=== PATIENT | male | born 1990 | race American Indian/Alaskan Native ===

== ENCOUNTER 2017-02-26 16:26 | Emergency (ER) | payer MEDICAID, OTHER ==
[2017-02-26 17:10] LABS: Basophils % (Auto) 0.8 % (0.0-1.8); Eosinophils % (Auto) 0.3 % (0.0-4.3); Hematocrit 42.9 % (35.5-45.6); Hemoglobin 14.6 gm/dl (11.8-15.2); Mean Corpuscular HGB Conc 34 % (32-34); Mean Corpuscular Hemoglobin 31 pg (28-32); Mean Corpuscular Volume 90 fl (84-94); Platelet Count 244 K/mm3 (140-440); Red Blood Count 4.77 M/mm3 (3.65-5.03); Red Cell Distribution Width 13.8 % (13.2-15.2); White Blood Count 8.5 K/mm3 (4.5-11.0)
[2017-02-26 17:31] LABS: Anion Gap 20 mmol/L; BUN/Creatinine Ratio 11; Blood Urea Nitrogen 8 mg/dL (9-20); Calcium 9.4 mg/dL (8.4-10.2); Carbon Dioxide 23 mmol/L (22-30); Glucose 81 mg/dL (75-100); Potassium 3.5 mmol/L (3.6-5.0); Sodium 141 mmol/L (137-145)
[2017-02-26 18:10] LABS: Urine Drugs of Abuse Note Disclamer
[2017-02-26 18:15] LABS: Alanine Aminotransferase 14 units/L (7-56); Albumin 4.8 g/dL (3.9-5); Albumin/Globulin Ratio 1.8 %; Alkaline Phosphatase 58 units/L (35-129); Total Protein 7.4 g/dL (6.3-8.2)
[2017-02-26 18:17] LABS: Bilirubin,Direct < 0.2 mg/dL (0-0.2); Bilirubin,Indirect 0.7 mg/dL
[2017-02-26 18:20] LABS: Bilirubin,Urine NEG (Negative); Blood,Urine NEG (Negative); Ketones,Urine TR mg/dL (Negative); Leukocyte Esterase,Urine NEG (Negative); Mucus,Urine 3+ /HPF; Nitrite,Urine NEG (Negative); Urobilinogen,Urine < 2.0 mg/dL (<2.0)
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
[2017-02-26 19:03] LABS: Lithium 0.1 mmol/L (0.0-1.2)
[2017-02-26 19:12] LABS: Salicylate < 0.3 mg/dL (2.8-20.0); Valproate < 2.8 ug/mL (50-100)
[2017-02-26] MEDS ORDERED: BENADRYL IM PRN (19:37)
[2017-02-26] MEDS: LITHOBID ER PO SCH (23:02)
[2017-02-27] MEDS: NON-FORMULARY (Paliperidone [Invega] 6 MG) PO SCH (11:36)
--- NOTE | 2017-02-27 14:32 | Consultation ---
History of Present Illness - Reason for Consult Consult date: 02/27/17 Reason for consult: Mental Health Evaluation Requesting physician: ALEX FELIZ - Chief Complaint Chief complaint: "My mom is no body" - History of Present Psychiatric Illness The patient is a 26-year-old AA male presenting with a chief complaint of violent behavior. Today patient is uncooperative and agitated during the assessment. He stated that his mother isn't anyone. He stated multiple times that his name is "Inderjit" and only the "word" can help everyone. He would not elaborate why he said the "word" can help everyone. The patient is hyper confucianist during the interview. He stated that his mother is the cause of his future "demise." He used curse words to describe his mother. He had to be told multiple time to stop cursing during the interview. When the patient was asked questions, he was evasive with his answers. He stated that he "maybe" suicidal, but would not confirm or deny a plan. Throughout the interview he spoke negative about his mother. He denies HI's and AVH's. He stated that he took Invega, Depakote, and [place] in the past. Medications and Allergies Allergies Allergy/AdvReac Type Severity Reaction Status Date / Time No Known Allergies Allergy Unverified 05/03/15 08:55 Home Medications Medication Instructions Recorded Confirmed Last Taken Type Divalproex Sodium [Divalproex 500 mg PO QHS 02/26/17 02/26/17 Unknown History Sodium ER] [place] Carbonate [[place] 450 mg PO QHS 02/26/17 02/26/17 Unknown History Carbonate ER] Paliperidone [Invega] 6 mg PO QDAY 02/26/17 02/26/17 Unknown History Active Meds: Active Medications Diphenhydramine HCl (Benadryl) 50 mg IM Q6H PRN PRN Reason: Agitation Divalproex Sodium (Depakote Er) 500 mg PO QHS [facility] Last Admin: 02/26/17 23:02 Dose: 500 mg [place] Carbonate (Lithobid Er) 450 mg PO QHS [facility] Last Admin: 02/26/17 23:02 Dose: 450 mg Miscellaneous Medication (Paliperidone [Invega]) 6 mg PO QDAY [facility] Last Admin: 02/27/17 11:36 Dose: Not Given Past psychiatric history - Past Medical History Past Medical History: No medical history Past Surgical History: No surgical history - past Psychiatric treatment and history Psych: Bipolar, Schizophrenia psychiatric treatment history: Would not confirm or deny having a mental health dx. Unable to obtain a fam psy hx. - Social History Social history: lives with family Mental Status Exam - Vital signs Last Vital Signs Temp 98.5 F 02/27/17 10:46 Pulse 68 02/27/17 10:46 Resp 16 02/27/17 10:46 BP 103/48 02/27/17 10:46 Pulse Ox 97 02/27/17 10:46 - Exam Narrative exam: MSE: Appearance: uncooperative Behavior: regular eye contact Speech: regular rate and tone Mood: agitated Affect: congruent to mood Thought Process: tangential Thought Content: denies HI's and AVH's, grandiose, deluisonal Motor Activity: sitting up in bed Cognition: A/Ox3 Insight: poor Judgment: poor Results Result Diagrams: 02/26/17 16:56 02/26/17 16:56 Abnormal lab results 02/26/17 02/26/17 02/26/17 Range/Units 16:56 16:56 16:56 [place] % (Auto) 8.9 H (0.0-7.3) % Potassium 3.5 L (3.6-5.0) mmol/L BUN 8 L (9-20) mg/dL Creatinine 0.7 L (0.8-1.5) mg/dL Salicylates < 0.3 L (2.8-20.0) mg/dL Valproic Acid < 2.8 L (50-100) ug/mL All other labs normal. Assessment and Plan Assessment and plan: Impression: Unspecified Mood DO with psychotic features. Today patient is uncooperative and agitated during the assessment. Positive for marijuana. DDx: Bipolar DO, R/O Schizophrenia, R/O Substance Induced Mood DO Recommendation/Plan: Continue 1013 with placement to inpatient psy services. Continue [place] 450 mg PO HS for mood, Depakote 500 mg PO HS for mood, and start Risperdal 0.5 mg PO HS for mood/psychotic symptoms. Discussed possible metabolic side effects of Risperdal with patient. If patient is still in the ER for 5 days, [place] and Depakote levels will be ordered.
[2017-02-27] MEDS ORDERED: RisperDAL PO SCH (22:00)
[2017-02-27] MEDS: RisperDAL PO SCH (22:18)
[2017-02-27] MEDS: LITHOBID ER PO SCH (22:19)
[2017-02-28] MEDS: NON-FORMULARY (Paliperidone [Invega] 6 MG) PO SCH (09:38)
--- NOTE | 2017-02-28 13:57 | Progress Note ---
Subjective - Reason for Consult Consult date: 02/28/17 Reason for consult: Psychiatry Follow-up - Chief Complaint Chief complaint: 'I am chilling" The patient is a 26-year-old AA male presenting with a chief complaint of violent behavior. Today the patient is cooperative during the assessment. He continue to be grandiose during the interview. He stated that he "must" get his mother to understand her role. He would not elaborate more when asked. The patient had to be redirected several time to keep him on topic. He denies SI/HI' s. Mental Status Exam - Vital signs Last Vital Signs Temp 97.9 F 02/28/17 09:26 Pulse 73 02/28/17 09:26 Resp 18 02/28/17 09:26 BP 112/63 02/28/17 09:26 Pulse Ox 99 02/28/17 09:26 - Exam Narrative exam: MSE: Appearance: cooperative Behavior: regular eye contact Speech: regular rate and tone Mood: "okay" Affect: flat Thought Process: tangential Thought Content: denies HI's and AVH's, grandiose, delusional Motor Activity: sitting up in bed Cognition: A/Ox3 Insight: poor Judgment: poor Assessment and Plan Impression: Unspecified Mood DO with psychotic features. Today patient is cooperative during the assessment. Positive for marijuana. DDx: Bipolar DO, R/O Schizophrenia, R/O Substance Induced Mood DO Recommendation/Plan: Continue 1013 with placement to inpatient psy services. Continue [place] 450 mg PO HS for mood, Depakote 500 mg PO HS for mood, and start Risperdal 0.5 mg PO HS for mood/psychotic symptoms. Discussed possible metabolic side effects of Risperdal with patient. If patient is still in the ER for 5 days, [place] and Depakote levels will be ordered.
[2017-02-28] MEDS: RisperDAL PO SCH (23:06)
[2017-02-28] MEDS: LITHOBID ER PO SCH (23:10)
[2017-03-01] MEDS ORDERED: GEODON PO ONE (09:31)
[2017-03-01] MEDS: NON-FORMULARY (Paliperidone [Invega] 6 MG) PO SCH (09:41)
--- NOTE | 2017-03-01 17:36 | Progress Note ---
Subjective - Reason for Consult Consult date: 03/01/17 Reason for consult: follow up - Chief Complaint Chief complaint: "I'm the same." The patient is a 26-year-old AA male presenting with a chief complaint of violent behavior. Today the patient was minimally cooperative during the assessment but not aggressive. He would not elaborate more when asked. He denies SI/HI's. Mental Status Exam - Vital signs Last Vital Signs Temp 98.2 F 03/01/17 07:25 Pulse 48 L 03/01/17 07:25 Resp 18 03/01/17 07:25 BP 109/47 03/01/17 07:25 Pulse Ox 99 03/01/17 07:25 - Exam Narrative exam: MSE: Appearance: cooperative Behavior: avoidant eye contact Speech: regular rate and tone Mood: irritable Affect: flat Thought Process: tangential Thought Content: denies HI's and AVH's, grandiose, delusional Motor Activity: sitting up in bed Cognition: A/Ox3 Insight: poor Judgment: poor Assessment and Plan Impression: Unspecified Mood DO with psychotic features. Today patient is minimally cooperative during the assessment. Positive for marijuana. DDx: Bipolar DO, R/O Schizophrenia, R/O Substance Induced Mood DO Recommendation/Plan: Continue 1013 with placement to inpatient psy services. Continue [place] 450 mg PO HS for mood, Depakote 500 mg PO HS for mood, and start Risperdal 0.5 mg PO HS for mood/psychotic symptoms. Discussed possible metabolic side effects of Risperdal with patient. If patient is still in the ER for 5 days, [place] and Depakote levels will be ordered.
[2017-03-01] MEDS: LITHOBID ER PO SCH (22:20)
[2017-03-01] MEDS: RisperDAL PO SCH (22:20)
[2017-03-02] MEDS: NON-FORMULARY (Paliperidone [Invega] 6 MG) PO SCH (11:00)
--- NOTE | 2017-03-02 18:14 | Progress Note ---
Subjective - Reason for Consult Consult date: 03/02/17 Reason for consult: follow up - Chief Complaint Chief complaint: "I need to get to work." The patient is a 26-year-old AA male presenting with a chief complaint of violent behavior. He has not displayed any aggressive behavior. He appeared as though he was tearful today. He states "a lot is going on." He wants to get back to work at [employer]. He has been resting on the stretcher for most of the day. He denies SI/HI's. He denies hallucinations. He denies medication side effects. Mental Status Exam - Vital signs Last Vital Signs Temp 97.8 F 03/02/17 08:15 Pulse 58 L 03/02/17 08:15 Resp 16 03/02/17 08:15 BP 102/58 03/02/17 08:15 Pulse Ox 100 03/02/17 08:15 - Exam Narrative exam: MSE: Appearance: cooperative Behavior: fair eye contact Speech: regular rate and tone Mood: depressed Affect: flat Thought Process: limited in scope Thought Content: denies HI's and AVH's, would not discuss Motor Activity: sitting up in bed Cognition: A/Ox3 Insight: poor Judgment: poor Assessment and Plan Impression: Unspecified Mood DO with psychotic features. Today patient is minimally cooperative during the assessment. Positive for marijuana. DDx: Bipolar DO, R/O Schizophrenia, R/O Substance Induced Mood DO Recommendation/Plan: Continue 1013 with placement to inpatient psy services. Continue [place] 450 mg PO HS for mood, Depakote 500 mg PO HS for mood, and increase Risperdal to 1 mg PO HS for mood/psychotic symptoms. Discussed possible metabolic side effects of Risperdal with patient. If patient is still in the He has been receiving [place] and Depakote x 5 days and levels will be ordered for tomorrow am.
[2017-03-02] MEDS: LITHOBID ER PO SCH (22:29)
[2017-03-02] MEDS: RisperDAL PO SCH (22:29)
[2017-03-03 06:34] LABS: Lithium 0.6 mmol/L (0.0-1.2); Valproate 40.8 ug/mL (50-100)
[2017-03-03] MEDS: NON-FORMULARY (Paliperidone [Invega] 6 MG) PO SCH (12:01)
--- NOTE | 2017-03-03 14:36 | Progress Note ---
Subjective - Reason for Consult Consult date: 03/03/17 Reason for consult: Psychiatry Follow-up - Chief Complaint Chief complaint: "When can I leave" The patient is a 26-year-old AA male presenting with a chief complaint of violent behavior. Today patient is calm and cooperative during the assessment. The patient is more cooperative today than previous interviews. He stated that he would like to be discharged so he can return to work. He denies SI/HI's and AVH's. He denies any side effects of his medications. Mental Status Exam - Vital signs Last Vital Signs Temp 98.3 F 03/03/17 09:38 Pulse 72 03/03/17 09:38 Resp 20 03/03/17 09:38 BP 107/51 03/03/17 09:38 Pulse Ox 96 03/03/17 09:38 - Exam Narrative exam: MSE: Appearance: calm, cooperative Behavior: regular eye contact Speech: regular rate and tone Mood: "okay" Affect: congruent to mood Thought Process: circumstantial Thought Content: denies HI's and AVH's Motor Activity: sitting up in bed Cognition: A/Ox3 Insight: variable Judgment: variable Assessment and Plan Impression: Unspecified Mood DO with psychotic features. Today patient is calm and cooperative during the assessment. Positive for marijuana. [place] 40.8 and [place] 0.6. DDx: Bipolar DO, R/O Schizophrenia, R/O Substance Induced Mood DO Recommendation/Plan: Continue 1013 with placement to inpatient psy services. Continue [place] 450 mg PO HS for mood, Depakote 500 mg PO HS for mood, and Risperdal 1 mg PO HS for mood/psychotic symptoms. Discussed possible metabolic side effects of Risperdal with patient.
[2017-03-03] MEDS: LITHOBID ER PO SCH (21:47)
[2017-03-03] MEDS: RisperDAL PO SCH (21:48)
[2017-03-04 01:51] VITALS: BP 105/63
== END 2017-03-04 00:05 ==
LOC: EEVIPCON 16:26 → ED 16:26
DX: F20.9 Schizophrenia, unspecified (principal); F91.9 Conduct disorder, unspecified; R45.851 Suicidal ideations; F17.200 Nicotine dependence, unspecified, uncomplicated; F12.10 Cannabis abuse, uncomplicated
CPT/HCPCS: 36415; 80048; 80074; 80164; 80178; 80307; 81001; 85025; 99285; G0480; 80320

== ENCOUNTER 2017-03-26 10:14 | Emergency (ER) | payer MEDICAID ==
[2017-03-26 11:58] LABS: Basophils # (Auto) 0.1 K/mm3 (0.0-0.1); Eosinophils # (Auto) 0.1 K/mm3 (0.0-0.4); Eosinophils % (Auto) 0.8 % (0.0-4.3); Hematocrit 43.5 % (35.5-45.6); Hemoglobin 14.8 gm/dl (11.8-15.2); Lymphocytes # (Auto) 2.2 K/mm3 (1.2-5.4); Lymphocytes % (Auto) 26.9 % (13.4-35.0); Mean Corpuscular HGB Conc 34 % (32-34); Mean Corpuscular Hemoglobin 31 pg (28-32); Mean Corpuscular Volume 91 fl (84-94); Monocytes # (Auto) 0.8 K/mm3 (0.0-0.8); Platelet Count 221 K/mm3 (140-440); Red Blood Count 4.79 M/mm3 (3.65-5.03); Red Cell Distribution Width 13.6 % (13.2-15.2)
--- NOTE | 2017-03-26 12:10 | Emergency Department Report ---
HPI - General Chief Complaint: Psych Time Seen by Provider: 03/26/17 11:03 - HPI HPI: This is a 26 year-old male presents to the emergency department from his transitional house with what appears to be acute psychosis. The patient has a history of schizophrenia and it appears as if he has not been compliant with his medications. The patient has flight of ideas, pressured speech, delusions and cannot give a good history. He keeps talking about Islam in terms of people not understanding why "Cristóbal on the cross" and "why you celebrate [place] but not Easter." He starts talking about people being murdered but he is not making threats that he is going to harm people but continues to talk about people shooting themselves. He says things like "I've been living on this earth my entire life." He continues talking even when i have finished my exam and have left the room. ED Past Medical Hx - Past Medical History Hx Psychiatric Treatment: Yes (Schizophrenia) - Social History Smoking Status: Current Every Day Smoker Substance Use Type: Alcohol (occasional), Marijuana - Medications Home Medications: Home Medications Medication Instructions Recorded Confirmed Last Taken Type Divalproex Sodium [Divalproex 500 mg PO QHS 02/26/17 02/26/17 Unknown History Sodium ER] [place] Carbonate [[place] 450 mg PO QHS 02/26/17 02/26/17 Unknown History Carbonate ER] Paliperidone [Invega] 6 mg PO QDAY 02/26/17 02/26/17 Unknown History ED Review of Systems ROS: Stated complaint: NEEDS TO BE STABILIZED Other details as noted in HPI Comment: Unobtainable due to pts medical conditions Physical Exam - Physical Exam Physical Exam: GENERAL: The patient is well-developed well-nourished. HENT: Normocephalic. Atraumatic. Patient has moist mucous membranes. EYES: Extraocular motions are intact. Pupils equal reactive to light bilaterally. NECK: Supple. Trachea is midline. CHEST/LUNGS: Clear to auscultation. There is no respiratory distress noted. HEART/CARDIOVASCULAR: Regular. There is no tachycardia. There is no murmur. ABDOMEN: Abdomen is soft, nontender. Patient has normal bowel sounds. There is no abdominal distention. SKIN: Skin is warm and dry. NEURO: The patient is awake, alert. The patient is cooperative. The patient has no focal neurologic deficits. The patient has normal speech. MUSCULOSKELETAL: There is no tenderness or deformity. There is no limitation range of motion. There is no evidence of acute injury. PSYCH: Patient has pressured speech, tangential thoughts, delusions. ED Medical Decision Making - Lab Data Result diagrams: 03/26/17 11:31 03/26/17 11:31 - Medical Decision Making Patient presents with what appears to be acute psychosis secondary to his schizophrenia. Labs are mostly unremarkable. There is some microscopic hematuria seen but no urinary tract infection. 80 ketones in the urine. There is no renal insufficiency. Urine drug screen positive for marijuana. Otherwise the rest of his labs are unremarkable. Vital signs stable throughout his ED course. He will get some IV fluid resuscitation for the dehydration. But otherwise he appears medically cleared for psychiatric placement. He has been made a 1013 secondary to the acute psychosis. - Differential Diagnosis schizophrenia, schizoaffective, bipolar disorder, substance abuse Critical Care Time: No Critical care attestation.: If time is entered above; I have spent that time in minutes in the direct care of this critically ill patient, excluding procedure time. ED Disposition Clinical Impression: Acute psychosis Schizophrenia Qualifiers: Schizophrenia type: unspecified Qualified Code(s): F20.9 - Schizophrenia, unspecified Disposition: DC/TX-65 PSY HOSP/PSY UNIT Is pt being admited?: No Condition: Stable Time of Disposition: 13:19
[2017-03-26 12:15] LABS: Bilirubin,Urine NEG (Negative); Blood,Urine SM (Negative); Color,Urine Amber (Yellow); Mucus,Urine 3+ /HPF; Nitrite,Urine NEG (Negative)
[2017-03-26 12:19] LABS: Alanine Aminotransferase 29 units/L (7-56); Albumin 4.7 g/dL (3.9-5); BUN/Creatinine Ratio 23; Blood Urea Nitrogen 16 mg/dL (9-20); Calcium 9.6 mg/dL (8.4-10.2); Hemolysis Index 13
[2017-03-26 12:22] LABS: Amphetamine Screen,Urine PRESUMPTIVE NEGATIVE; Benzodiazepines Screen,Urine PRESUMPTIVE NEGATIVE; Cocaine Screen,Urine PRESUMPTIVE NEGATIVE; Methadone Screen,Urine PRESUMPTIVE NEGATIVE; Opiate Screen,Urine PRESUMPTIVE NEGATIVE
[2017-03-26] MEDS ORDERED: NACL 0.9% 1000 ML 1,000 ML IV ONE (12:33)
[2017-03-26 12:38] LABS: Cannabinoid Screen,Urine PRESUMPTIVE POSITIVE
--- NOTE | 2017-03-27 10:05 | Consultation ---
History of Present Illness - Reason for Consult Consult date: 03/27/17 Reason for consult: Mental Health Evaluation Requesting physician: JUNIOR PAUL - Chief Complaint Chief complaint: "Why are you talking to me" - History of Present Psychiatric Illness This is a 26 year-old male presents to the emergency department for psychosis. This patient is known to me. Today the patient is calm , but grandiose and delusional during the assessment. The patient had to be redirected multiple times to keep him on topic. He rambles about druze content and being equal to "someone." His answers to questions asked of him isn' t logical. The patient is a poor historian at this time. No gestures of SI/HI' s. Medications and Allergies Allergies Allergy/AdvReac Type Severity Reaction Status Date / Time No Known Allergies Allergy Unverified 05/03/15 08:55 Home Medications Medication Instructions Recorded Confirmed Last Taken Type Divalproex Sodium [Divalproex 500 mg PO QHS 02/26/17 02/26/17 Unknown History Sodium ER] [place] Carbonate [[place] 450 mg PO QHS 02/26/17 02/26/17 Unknown History Carbonate ER] Paliperidone [Invega] 6 mg PO QDAY 02/26/17 02/26/17 Unknown History Past psychiatric history - Past Medical History Past Medical History: No medical history Past Surgical History: No surgical history - past Psychiatric treatment and history psychiatric treatment history: Multiple inpatient psy services. He cannot confirm or deny a fam psy hx. - Social History Social history: lives with family Mental Status Exam - Vital signs Last Vital Signs Temp 98.8 F 03/26/17 22:00 Pulse 86 03/26/17 22:00 Resp 20 03/26/17 22:00 BP 133/76 03/26/17 22:00 Pulse Ox 98 03/26/17 22:00 - Exam Narrative exam: MSE: Appearance: calm Behavior: good eye contact Speech: hyper verbal Mood: "okay" Affect: blunted Thought Process: unable to assess Thought Content: no gestures of SI/HI's and AVH's, grandiose, delusional Motor Activity: ambulatory Cognition: A/Ox3 Insight: poor Judgment: poor Results Result Diagrams: 03/26/17 11:31 03/26/17 11:31 Abnormal lab results 03/26/17 03/26/17 03/26/17 Range/Units 11:31 11:31 11:31 [place] % (Auto) 10.0 H (0.0-7.3) % Creatinine 0.7 L (0.8-1.5) mg/dL Ur Specific [place] (1.003-1.030) Salicylates < 0.3 L (2.8-20.0) mg/dL 03/26/17 Range/Units 11:37 [place] % (Auto) (0.0-7.3) % Creatinine (0.8-1.5) mg/dL Ur Specific [place] 1.031 H (1.003-1.030) Salicylates (2.8-20.0) mg/dL All other labs normal. 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 Today the patient is calm, but grandiose and delusional during the assessment. DDx: Bipolar DO, R/O Schizophrenia, R/O Substance Induced Psychosis Recommendation/Plan: Continue 1013 with placement to inpatient psy services. Start Risperdal 1 mg PO HS for mood/psychosis, Depakote 500 mg HS for mood, and [place] 450 mg PO HS for mood. Discussed possible metabolic side effects of Risperdal with patient.
[2017-03-27 17:12] VITALS: BP 136/80
[2017-03-27] MEDS ORDERED: ESKALITH PO SCH (22:00)
[2017-03-27] MEDS ORDERED: RisperDAL PO SCH (22:00)
== END 2017-03-27 22:32 ==
LOC: ED 10:14
DX: F20.9 Schizophrenia, unspecified (principal); F17.200 Nicotine dependence, unspecified, uncomplicated; F12.10 Cannabis abuse, uncomplicated
CPT/HCPCS: 36415; 80053; 80164; 80178; 80307; 81001; 82550; 85025; 96360; 99285; G0480; J7030; 80320